=== PATIENT | female | born 1990 | race Caucasian/White ===

== ENCOUNTER 2022-01-31 13:49 | Emergency (ER) | payer BC ==
[~2022-01-31] VITALS: Ht 165.1 cm; Wt 113.6 kg
[2022-01-31] MEDS ORDERED: BACTRIM DS TAB1 EACH PO (14:21)
[2022-01-31] MEDS ORDERED: PREDNISONE20 MG PO (14:21)
[2022-01-31] MEDS ORDERED: ZOLOFT 50MG50 MG PO (14:23)
[2022-01-31 16:24] LABS: BASO # 0.03 K/mm3 (0.02-0.10); HEMATOCRIT 37.7 % (37.0-47.0); HEMOGLOBIN 12.2 g/dL (12.5-16.0); LYMPH# 4.13 K/mm3 (1.50-4.00); MEAN CELL VOLUME 90 fl (78-100); MEAN CORPUSCULAR HEMOGLOBIN 29 pg (27-31); MEAN CORPUSCULAR HGB CONC 32 g/dL (33-37); MEAN PLATELET VOLUME 9.2 fl (7.4-10.4); MONO # 0.77 K/mm3 (0.20-0.80); NEU # 8.46 K/mm3 (1.40-6.50); PLATELET COUNT 565 K/mm3 (130-400); RED BLOOD COUNT 4.19 M/mm3 (4.10-5.30); RED CELL DISTRIBUTION WIDTH 14.7 % (11.5-14.5); WHITE BLOOD COUNT 13.4 K/mm3 (4.8-10.8)
[2022-01-31] MEDS ORDERED: CEPHALEXIN500 M1 PO ×2 (17:08→17:17)
[2022-01-31 17:57] VITALS: BP 147/81
== END 2022-01-31 17:35 | disposition home or self-care (01) ==
LOC: ED 13:49
PROVIDERS: Family Medicine
DX: T63.481A Toxic effect of venom of other arthropod, accidental (unintentional), initial encounter (principal); Z28.310 Unvaccinated for COVID-19